=== PATIENT | female | born 1930 | race Caucasian/White ===

== ENCOUNTER 2017-10-15 06:57 | Inpatient (IN) | payer MEDICARE, OTHER ==
[~2017-10-15] VITALS: Ht 160 cm; Wt 68.0 kg
[~2017-10-15 06:57] MED LIST: ASPI325T17 PO; CALC-126 PO; CAND1TAB4 PO; CAND32TA2 PO; CIPR250T27 PO; DOXY25TA45 PO; ESZO1TAB8 PO; EZET10TA18 PO; GABA300C PO; HYDR-3307 PO; HYDR25TA6 PO; MIRT15TA PO; OXYC-302 PO; ROSU5TAB PO
[2017-10-15] MEDS ORDERED: SODIUM CHLORIDE 0.9% 1,000 ML IV ONE (07:18)
[2017-10-15] MEDS ORDERED: ZOLP-413 PO (07:20)
[2017-10-15] MEDS ORDERED: CYAN25009 PO (07:21)
[2017-10-15] MEDS ORDERED: CALC-116 PO (07:22)
[2017-10-15] MEDS ORDERED: ONDANSETRON 2MG/ML, 2ML IVPush ONE (07:30)
[2017-10-15] MEDS ORDERED: DIPH,PERTUSS(ACELL),TET VAC/PF 0.5 ML IM-VACC ONE ×2 (07:30→07:57)
[2017-10-15] MEDS ORDERED: SODIUM CHLORIDE FLUSH 10ML SYR IVF ONE (07:30)
[2017-10-15 07:43] LABS: HEMATOCRIT 34.2 % (34.6-47.8); HEMOGLOBIN 11.7 g/dL (11.7-16.4); WHITE BLOOD COUNT 10.4 x10^3/uL (3.4-10)
[2017-10-15 07:52] LABS: BLOOD UREA NITROGEN 12 mg/dL (7-18)
[2017-10-15] MEDS ORDERED: morphine SULFATE 10 MG/ML, 1ML ONE ×2 (07:56→09:57)
[2017-10-15] MEDS ORDERED: ONDANSETRON 2MG/ML, 2ML ONE (07:56)
[2017-10-15] MEDS: MORPHINE SULFATE 4 MG/ML, 1ML IVPush PRN ×2 (08:56→10:01)
[2017-10-15 12:19] VITALS: BP 127/62
[2017-10-15] MEDS ORDERED: ACETAMINOPHEN 325 MG TABLET PO PRN (14:00)
[2017-10-15] MEDS ORDERED: BISACODYL 10 MG SUPP PR PRN (14:00)
[2017-10-15] MEDS ORDERED: ONDANSETRON 2MG/ML, 2ML IVPush PRN (14:00)
[2017-10-15] MEDS ORDERED: POTASSIUM CHLORIDE 20 MEQ TAB.ER.PRT PO ONE (14:00)
[2017-10-15] MEDS ORDERED: POLYETHYLENE GLYCOL 17 GM PACKET PO PRN (14:00)
[2017-10-15] MEDS ORDERED: DOCUSATE 100 MG CAPSULE PO PRN (14:00)
[2017-10-15] MEDS ORDERED: ONDANSETRON ODT 4 MG PO PRN (14:00)
[2017-10-15] MEDS: SODIUM CHLORIDE 0.9% 1,000 ML IV SCH (14:25)
[2017-10-15] MEDS: morphine SULFATE 10 MG/ML, 1ML IVPush PRN (14:28)
[2017-10-15 14:38] LABS: PATH.CAST-FLAG NOT PRESENT; SPERM-FLAG NOT PRESENT; SRC-FLAG NOT PRESENT; XTAL-FLAG NOT PRESENT; YLC-FLAG NOT PRESENT
[2017-10-15] MEDS: HYDROcodone/APAP 10/325 MG TABLET PO PRN ×3 (14:54→23:51)
[2017-10-15] MEDS: ATORVASTATIN 10 MG TABLET PO SCH (20:04)
[2017-10-15] MEDS: [UNRECOGNIZED DRUG - OTHER] PO SCH (20:06)
[2017-10-15 20:59] VITALS: BP 123/58
[2017-10-15] MEDS: ZOLPIDEM 5MG TABLET PO PRN (23:51)
[2017-10-16 01:57] VITALS: BP 119/57
[2017-10-16] MEDS: SODIUM CHLORIDE 0.9% 1,000 ML IV SCH ×2 (02:14→19:47)
[2017-10-16] MEDS: morphine SULFATE 10 MG/ML, 1ML IVPush PRN ×4 (02:44→23:10)
[2017-10-16] MEDS: HYDROcodone/APAP 10/325 MG TABLET PO PRN ×5 (04:11→21:26)
[2017-10-16 05:40] LABS: HEMATOCRIT 31.1 % (34.6-47.8); HEMOGLOBIN 10.5 g/dL (11.7-16.4); WHITE BLOOD COUNT 8.3 x10^3/uL (3.4-10)
[2017-10-16 05:49] LABS: BLOOD UREA NITROGEN 10 mg/dL (7-18)
[2017-10-16 06:53] VITALS: BP 114/62
[2017-10-16] MEDS: [UNRECOGNIZED DRUG - OTHER] PO SCH ×2 (08:46→19:47)
[2017-10-16] MEDS: VALSARTAN 320 MG TABLET PO SCH (08:47)
[2017-10-16] MEDS: CYANOCOBALAMIN 1,000 MCG TABLET PO SCH (08:47)
[2017-10-16] MEDS: MIRTAZAPINE 15 MG TABLET PO SCH (08:47)
[2017-10-16] MEDS ORDERED: POTASSIUM PHOSPHATE 22 MEQ in SODIUM CHLORIDE 0.9% 500 ML IV ONE (09:00)
[2017-10-16] MEDS ORDERED: CEFTRIAXONE PMX 1GM/50ML 50 ML IV SCH (09:00)
[2017-10-16] MEDS ORDERED: MAGNESIUM SULFATE PMX 2GM/50ML 50 ML IV ONE (09:00)
[2017-10-16 12:24] VITALS: BP 129/67
[2017-10-16] MEDS: ENOXAPARIN 40 MG/0.4 ML SQ SCH (12:37)
[2017-10-16 18:43] VITALS: BP 137/71
[2017-10-16] MEDS: ATORVASTATIN 10 MG TABLET PO SCH (19:46)
[2017-10-16] MEDS: ZOLPIDEM 5MG TABLET PO PRN (23:10)
[2017-10-17 00:41] VITALS: BP 113/70
[2017-10-17] MEDS: morphine SULFATE 10 MG/ML, 1ML IVPush PRN (05:09)
[2017-10-17] MEDS: HYDROcodone/APAP 10/325 MG TABLET PO PRN ×4 (05:09→20:07)
[2017-10-17] MEDS: SODIUM CHLORIDE 0.9% 1,000 ML IV SCH (05:11)
[2017-10-17 05:37] LABS: HEMATOCRIT 29.3 % (34.6-47.8); WHITE BLOOD COUNT 7.8 x10^3/uL (3.4-10)
[2017-10-17 05:48] LABS: BLOOD UREA NITROGEN 12 mg/dL (7-18)
[2017-10-17 06:22] VITALS: BP 111/65
[2017-10-17] MEDS ORDERED: POTASSIUM PHOSPHATE 22 MEQ in SODIUM CHLORIDE 0.9% 500 ML IV ONE (09:00)
[2017-10-17] MEDS: [UNRECOGNIZED DRUG - OTHER] PO SCH ×2 (09:20→20:07)
[2017-10-17] MEDS: CYANOCOBALAMIN 1,000 MCG TABLET PO SCH (09:21)
[2017-10-17] MEDS: VALSARTAN 320 MG TABLET PO SCH (09:21)
[2017-10-17] MEDS: MIRTAZAPINE 15 MG TABLET PO SCH (09:21)
[2017-10-17] MEDS: CEFDINIR 300 MG CAPSULE PO SCH ×2 (10:18→20:07)
[2017-10-17] MEDS ORDERED: LORazepam 0.5MG TABLET PO PRN (12:00)
[2017-10-17] MEDS: ENOXAPARIN 40 MG/0.4 ML SQ SCH (12:17)
[2017-10-17 12:56] VITALS: BP 87/49
[2017-10-17 14:34] VITALS: BP 133/74
[2017-10-17] MEDS: DOCUSATE 100 MG CAPSULE PO SCH ×2 (15:01→20:07)
[2017-10-17] MEDS: ATORVASTATIN 10 MG TABLET PO SCH (20:08)
[2017-10-17 20:36] VITALS: BP 146/80
[2017-10-17] MEDS: ZOLPIDEM 5MG TABLET PO PRN (23:27)
[2017-10-18] MEDS: HYDROcodone/APAP 10/325 MG TABLET PO PRN ×5 (00:13→23:14)
[2017-10-18 03:25] VITALS: BP 117/71
[2017-10-18 05:40] LABS: BLOOD UREA NITROGEN 12 mg/dL (7-18)
[2017-10-18 06:51] VITALS: BP 145/59
[2017-10-18] MEDS: [UNRECOGNIZED DRUG - OTHER] PO SCH ×2 (08:18→21:00)
[2017-10-18] MEDS: DOCUSATE 100 MG CAPSULE PO SCH ×2 (08:43→20:25)
[2017-10-18] MEDS: MIRTAZAPINE 15 MG TABLET PO SCH (08:44)
[2017-10-18] MEDS: CEFDINIR 300 MG CAPSULE PO SCH (08:44)
[2017-10-18] MEDS: CYANOCOBALAMIN 1,000 MCG TABLET PO SCH (08:50)
[2017-10-18] MEDS: ENOXAPARIN 40 MG/0.4 ML SQ SCH (11:49)
[2017-10-18 12:14] VITALS: BP 112/56
[2017-10-18] MEDS ORDERED: SODIUM CHLORIDE 0.9% 1,000 ML IV SCH (13:58)
[2017-10-18] MEDS ORDERED: THIAMINE 100 MG/ML, 2ML IM SCH (17:03)
[2017-10-18 20:00] VITALS: BP 179/80
[2017-10-18] MEDS: THIAMINE 100MG TABLET PO SCH (20:25)
[2017-10-18] MEDS: ATORVASTATIN 10 MG TABLET PO SCH (20:25)
[2017-10-18] MEDS: ZOLPIDEM 5MG TABLET PO PRN (22:37)
[2017-10-19 01:16] VITALS: BP 157/76
[2017-10-19 05:54] LABS: BLOOD UREA NITROGEN 11 mg/dL (7-18); HEMATOCRIT 26.5 % (34.6-47.8); WHITE BLOOD COUNT 4.8 x10^3/uL (3.4-10)
[2017-10-19 06:39] VITALS: BP 138/72
[2017-10-19] MEDS ORDERED: PNEUMOCOCCAL 23 VACCINE IM-VACC ONE (07:00)
[2017-10-19] MEDS: HYDROcodone/APAP 10/325 MG TABLET PO PRN ×3 (08:38→19:41)
[2017-10-19] MEDS: CYANOCOBALAMIN 1,000 MCG TABLET PO SCH (08:39)
[2017-10-19] MEDS: DOCUSATE 100 MG CAPSULE PO SCH ×2 (08:39→21:44)
[2017-10-19] MEDS: MIRTAZAPINE 15 MG TABLET PO SCH (08:39)
[2017-10-19] MEDS: FOLIC ACID 1 MG TABLET PO SCH (08:39)
[2017-10-19] MEDS: THIAMINE 100MG TABLET PO SCH (08:39)
[2017-10-19] MEDS: [UNRECOGNIZED DRUG - OTHER] PO SCH ×2 (08:39→21:00)
[2017-10-19] MEDS ORDERED: LORazepam 0.5MG TABLET PO ONE (09:00)
[2017-10-19] MEDS: ENOXAPARIN 40 MG/0.4 ML SQ SCH (11:39)
[2017-10-19 13:25] VITALS: BP 136/75
[2017-10-19 20:28] VITALS: BP 176/74
[2017-10-19] MEDS: ZOLPIDEM 5MG TABLET PO PRN (21:44)
[2017-10-19] MEDS: ATORVASTATIN 10 MG TABLET PO SCH (21:44)
[2017-10-20] MEDS: LORazepam 0.5MG TABLET PO PRN ×2 (01:10→09:00)
[2017-10-20] MEDS: HYDROcodone/APAP 10/325 MG TABLET PO PRN ×4 (01:10→17:20)
[2017-10-20 03:14] VITALS: BP 160/74
[2017-10-20 06:49] VITALS: BP 151/81
[2017-10-20] MEDS: CYANOCOBALAMIN 1,000 MCG TABLET PO SCH (08:49)
[2017-10-20] MEDS: THIAMINE 100MG TABLET PO SCH (08:49)
[2017-10-20] MEDS: MIRTAZAPINE 15 MG TABLET PO SCH (08:49)
[2017-10-20] MEDS: FOLIC ACID 1 MG TABLET PO SCH (08:49)
[2017-10-20] MEDS: [UNRECOGNIZED DRUG - OTHER] PO SCH (08:50)
[2017-10-20] MEDS: DOCUSATE 100 MG CAPSULE PO SCH (08:50)
[2017-10-20] MEDS ORDERED: CHOLECALCIFEROL 1,000 UNIT TABLET PO SCH (09:00)
[2017-10-20] MEDS: ENOXAPARIN 40 MG/0.4 ML SQ SCH (11:25)
[2017-10-20] MEDS ORDERED: LISINOPRIL 10 MG TABLET PO SCH (12:30)
[2017-10-20] MEDS ORDERED: THIA100T6 PO (13:36)
[2017-10-20] MEDS ORDERED: FOLI-17 PO (13:36)
[2017-10-20] MEDS ORDERED: LISI-167 PO (13:41)
[2017-10-20 13:46] VITALS: BP 122/74
[2017-10-20] MEDS ORDERED: MAGNESIUM SULFATE PMX 2GM/50ML 50 ML IV ONE (14:00)
[2017-10-20 17:23] VITALS: BP 142/79
== END 2017-10-20 17:44 | DRG 543 ==
LOC: ED 07:42 → EDIP 10:54 → 4NOR 12:10
PROVIDERS: ADMIT Internal Medicine; ATTEND Internal Medicine
DX: M80.051A Age-related osteoporosis with current pathological fracture, right femur, initial encounter for fracture (principal); F11.20 Opioid dependence, uncomplicated; G62.9 Polyneuropathy, unspecified; E83.39 Other disorders of phosphorus metabolism; D64.9 Anemia, unspecified; E83.42 Hypomagnesemia; K57.92 Diverticulitis of intestine, part unspecified, without perforation or abscess without bleeding; M75.101 Unspecified rotator cuff tear or rupture of right shoulder, not specified as traumatic; W18.30XA Fall on same level, unspecified, initial encounter; D72.829 Elevated white blood cell count, unspecified; E53.8 Deficiency of other specified B group vitamins; E78.5 Hyperlipidemia, unspecified; E87.6 Hypokalemia; G47.00 Insomnia, unspecified; G89.29 Other chronic pain; I10 Essential (primary) hypertension; W18.39XA Other fall on same level, initial encounter; Y93.89 Activity, other specified; Y92.89 Other specified places as the place of occurrence of the external cause; Y99.8 Other external cause status; F41.9 Anxiety disorder, unspecified; M19.019 Primary osteoarthritis, unspecified shoulder; Z88.8 Allergy status to other drugs, medicaments and biological substances
CPT/HCPCS: 36415; 71010; 72192; 72220; 80048; 81001; 82040; 82306; 82607; 83735; 84100; 85025; 87086; 90471; 90715; 90732; 93005; 93306; 96361; 96374; 96375; 96376; J0696; J1650; J2405; J2270; J3475; J7030; J7040

== ENCOUNTER 2020-07-17 00:23 | Emergency (ER) | payer MEDICARE, OTHER ==
[~2020-07-17] VITALS: Ht 160 cm; Wt 60.0 kg
[~2020-07-17 00:23] MED LIST changes: +CALC-116 PO; +CAND1TAB34 PO; -CAND1TAB4 PO; +CAND32TA19 PO; -CAND32TA2 PO; +CYAN25009 PO; -EZET10TA18 PO; +EZET10TA70 PO; +FOLI-17 PO; +HYDR-3246 PO; -HYDR-3307 PO; +LISI-167 PO; +THIA100T67 PO; +ZOLP-413 PO
--- NOTE | 2020-07-17 00:37 | NUR ---
ERP TO BEDSIDE.
[2020-07-17 01:01] LABS: BASOPHILS # (AUTO) 0.02 x10^3/uL (0-0.1); BASOPHILS % (AUTO) 0 % (0-1); EOSINOPHILS # (AUTO) 0.02 x10^3/uL (0-0.4); EOSINOPHILS % (AUTO) 0 % (1-7); LYMPHOCYTES # (AUTO) 1.48 x10^3/uL (1-3.4); LYMPHOCYTES % (AUTO) 30 % (22-44); MD NO; MEAN CORPUSCULAR HEMOGLOBIN 33.1 pg (27.0-34.8); MEAN CORPUSCULAR HGB CONC 32.6 g/dL (32.4-35.8); MEAN CORPUSCULAR VOLUME 101.4 fL (80-100); MONOCYTES # (AUTO) 0.52 x10^3/uL (0.2-0.8); MONOCYTES % (AUTO) 10 % (2-9); NEUTROPHILS # (AUTO) 2.96 x10^3/uL (1.8-6.8); NEUTROPHILS % (AUTO) 59 % (42-75); PLATELET COUNT 203 x10^3/uL (130-400); RED BLOOD COUNT 3.44 x10^6/uL (3.82-5.3); RED CELL DISTRIBUTION WIDTH 15.2 % (9.6-15.2)
--- NOTE | 2020-07-17 01:06 | NUR ---
SUMMARY NOTE: PT STATES SHE WAS SITTING ON THE COUCH AFTER DINNER, WHEN SHE SLIPPED OFF. "MY KEPT TELLING ME I WAS GOING TO FALL OFF IF I DIDN'T SCOOTCH BACK." PT DENIES PAIN OR ANY COMPLIANTS. PT STATES SHE HAS "A COUPLE GLASSES OF WINE AROUND 3" AND DRANK WITH DINNER, PT ALSO TAKES HER PERSCRIBED [place]CO. UPON ARRIVAL, PT IS AWAKE AND ALERT, PT PLACED ON CARDIAC, BP AND O2 MONITORS. BEDRAILS UP X2. CALL LIGHT IN REACH. ALL NEEDS MET AT THIS TIME.
--- NOTE | 2020-07-17 01:11 | NUR ---
MED REC COMPLETE TO BEST OF PT'S ABILITY.
[2020-07-17 01:13] LABS: ALBUMIN 3.1 g/dL (3.4-5.0); ANION GAP 11 mmol/L (5-15); CHLORIDE 104 mmol/L (98-107); CREATININE 0.87 mg/dL (0.55-1.02)
[2020-07-17 01:17] LABS: TROPONIN I < 0.015 ng/mL (0.000-0.045)
--- NOTE | 2020-07-17 01:34 | NUR ---
PT YELLING FOR HELP FROM ROOM, STATES SHE'S ANGRY AND WANTS TO LEAVE. PT EDUCATED ABOUT POC. PT REPOSITIONED IN BED. PT NOW SLEEPING.
--- NOTE | 2020-07-17 02:15 | NUR ---
PT AMBULATORY THROUGH [facility] WITH STEADY GAIT AT BASELINE WITH WALKER. PT DENIES ALL COMPLAINTS.
[2020-07-17 03:05] VITALS: BP 160/76
== END 2020-07-17 03:08 | disposition home or self-care (01) ==
LOC: ED 02:59
DX: R53.1 Weakness (principal); R94.31 Abnormal electrocardiogram [ECG] [EKG]; R10.9 Unspecified abdominal pain; G89.29 Other chronic pain; E78.5 Hyperlipidemia, unspecified; I10 Essential (primary) hypertension; Z87.891 Personal history of nicotine dependence
CPT/HCPCS: 36415; 71045; 80048; 82040; 84484; 85025; 93005; 99285

== ENCOUNTER 2020-11-18 09:39 | Emergency (ER) | payer MEDICARE, OTHER ==
[~2020-11-18] VITALS: Ht 157.5 cm; Wt 56.3 kg
[~2020-11-18 09:39] MED LIST changes: +MIRT-37 PO; -MIRT15TA PO
[2020-11-18] MEDS ORDERED: ONDANSETRON 2MG/ML, 2ML IVPush ONE (10:00)
[2020-11-18] MEDS ORDERED: SODIUM CHLORIDE FLUSH 10ML SYR IVF ONE (10:00)
[2020-11-18] MEDS ORDERED: PLEASE ENTER HEIGHT AND WEIGHT MC SCH (10:00)
[2020-11-18] MEDS ORDERED: MORPHINE SULFATE 4 MG/ML, 1ML ONE ×2 (10:18→11:51)
[2020-11-18] MEDS ORDERED: ONDANSETRON 2MG/ML, 2ML ONE (10:18)
[2020-11-18] MEDS: MORPHINE SULFATE 4 MG/ML, 1ML IVPush PRN ×2 (10:23→11:53)
[2020-11-18 10:31] LABS: BASOPHILS % (AUTO) 0 % (0-1); EOSINOPHILS % (AUTO) 0 % (1-7); LYMPHOCYTES % (AUTO) 9 % (22-44); MEAN CORPUSCULAR HEMOGLOBIN 32.8 pg (27.0-34.8); MEAN CORPUSCULAR HGB CONC 33.1 g/dL (32.4-35.8); MEAN PLATELET VOLUME 8.3 fL (7.4-10.4); MONOCYTES % (AUTO) 8 % (2-9); NEUTROPHILS % (AUTO) 82 % (42-75); PLATELET COUNT 189 x10^3/uL (130-400); RED CELL DISTRIBUTION WIDTH 13.9 % (9.6-15.2)
[2020-11-18 10:32] LABS: MD NO
--- NOTE | 2020-11-18 10:33 | NUR ---
PT TO CT, MEDICATED WITH PAIN MEDS AND ZOFRAN BEFORE LEAVING. PT O2 SAT DROPPED TO 89, 2L O2 VIA NC APPLIED TO GO TO CT
[2020-11-18 10:42] LABS: ALBUMIN 2.8 g/dL (3.4-5.0); ANION GAP 6 mmol/L (5-15); CALCIUM 9.1 mg/dL (8.5-10.1); CHLORIDE 102 mmol/L (98-107); CREATININE 0.77 mg/dL (0.55-1.02)
[2020-11-18 10:44] LABS: CREATINE KINASE, TOTAL 45 U/L (26-192)
--- NOTE | 2020-11-18 12:00 | NUR ---
LUNCH BREAK NOTE: PT MEDICATED FOR 7/[address] RESULTS. VITALS ENTERED.
--- NOTE | 2020-11-18 12:26 | NUR ---
ATTEMPT TO ROAD TEST PT, PT UNABLE TO SIT UP STRAIGHT ON WENDI WILCOX
[2020-11-18] MEDS ORDERED: LORazepam 2 MG/ML, 1ML IV PRN ×3 (13:00)
[2020-11-18] MEDS ORDERED: HYDROcodone/APAP 10/325 MG TABLET PO PRN (13:00)
[2020-11-18] MEDS ORDERED: LORazepam 0.5MG TABLET PO PRN (13:00)
[2020-11-18] MEDS ORDERED: LORazepam 1MG TABLET PO PRN ×2 (13:00)
--- NOTE | 2020-11-18 13:27 | NUR ---
SPOKE WITH ADMITTING MD, CHRISTIANO TEST ORDERED D/T NEED FOR SKILLED PLACEMENT. PT NOT COVID R/O. OK TO GO TO MED SURGE FLOOR.
--- NOTE | 2020-11-18 14:18 | NUR ---
PT REQUIED 2PA FOR BEDPAN, PT MAKING STATEMENTS "I WANT TO GO HOME, PEOPLE ARENT TAKING CARE OF ME I SHOULD BE WALKING" DISCUSSED WITH PT POC, PT NEEDING PT AND SKILLED CARE TO BECOME STRONGER, 2 PEOPLE TO PUT HER ON COMMODE AND SHE CANT SIT UP SHE WILL NOT BE ABLE TO WALK AT THIS TIME
[2020-11-18 14:58] VITALS: BP 182/56
[2020-11-18] MEDS ORDERED: ONDANSETRON ODT 4 MG PO PRN (16:00)
[2020-11-18] MEDS ORDERED: POLYETHYLENE GLYCOL 17 GM PACKET PO PRN (16:00)
[2020-11-18] MEDS ORDERED: TRAZODONE 50MG TABLET PO PRN (16:00)
[2020-11-18] MEDS ORDERED: MELATONIN 5 MG TABLET PO PRN (16:00)
[2020-11-18] MEDS ORDERED: ACETAMINOPHEN 325 MG TABLET PO PRN (16:00)
--- NOTE | 2020-11-18 16:22 | NUR ---
PT PROVIDED WITH MEAL TRAY PER REQUEST. VSS, NAD NOTED
--- NOTE | 2020-11-18 17:41 | NUR ---
PT NOW ABLE TO STAND WITH 2PA, STATES SHE WANTS TO GO HOME AND HAS PLENTY OF HELP AT HOME, WILL HAVE OUTPT SX PER ORTHO. ADMITTING MD MADE AWARE. SHE IS TO DC PATIENT HOME
[2020-11-18] MEDS ORDERED: ENOXAPARIN 40 MG/0.4 ML SQ SCH (18:00)
[2020-11-18] MEDS ORDERED: HYDR-3246 PO (18:14)
--- NOTE | 2020-11-18 18:31 | NUR ---
Patient/Caregiver given discharge instructions and they have confirmed that they understand the instructions. Patient ambulatory with steady gait.
[2020-11-18] MEDS ORDERED: ATORVASTATIN 20 MG TABLET PO SCH (21:00)
[2020-11-19] MEDS ORDERED: SENNA/DOCUSATE TABLET PO SCH (09:00)
[2020-11-19] MEDS ORDERED: THIAMINE 100MG TABLET PO SCH (09:00)
[2020-11-19] MEDS ORDERED: LISINOPRIL 5 MG TABLET PO SCH (09:00)
[2020-11-19] MEDS ORDERED: MIRTAZAPINE 15 MG TABLET PO SCH (09:00)
[2020-11-19] MEDS ORDERED: FOLIC ACID 1 MG TABLET PO SCH (09:00)
[2020-11-19] MEDS ORDERED: CYANOCOBALAMIN 1,000 MCG TABLET PO SCH (09:00)
== END 2020-11-18 18:57 | disposition home or self-care (01) ==
LOC: ED 11:37 → UNDOADMIN 12:52 → EDIP 12:52 → ED 18:57
DX: S42.492A Other displaced fracture of lower end of left humerus, initial encounter for closed fracture (principal); S70.02XA Contusion of left hip, initial encounter; S09.90XA Unspecified injury of head, initial encounter; R26.2 Difficulty in walking, not elsewhere classified; I49.1 Atrial premature depolarization; W01.0XXA Fall on same level from slipping, tripping and stumbling without subsequent striking against object, initial encounter; Y93.89 Activity, other specified; Y92.89 Other specified places as the place of occurrence of the external cause; Y99.8 Other external cause status
CPT/HCPCS: 29105; 36415; 70450; 71045; 72125; 72192; 73080; 73200; 73502; 80048; 82040; 82550; 85025; 93005; 96374; 96375; 96376; 99285; J2270; J2405